=== PATIENT | female | born 1955 | race Caucasian/White ===

== ENCOUNTER → 2018-11-04 | Outpatient (CLI) | payer BC ==
[~2018-11-04] MED LIST: 24 HOUR ALLERG9.9 ML; ASPI81EC PO; CHOL10002 PO; CYCL10 PO; DULO60 PO; HYDACE5 PO; NEBI5 PO; PROM25 PO; Percocet 5-3251 EACH PO; ZYRTEC10 M2 PO
[2018-11-08 15:06] LABS: HPV 16 Negative (Negative); HPV 18 Negative (Negative); HPV OTHER HR TYPES Negative (Negative)
== END | disposition home or self-care (01) ==
LOC: LAB 14:30 → LAB SHORT 14:30
PROVIDERS: Internal Medicine
DX: Z01.419 Encounter for gynecological examination (general) (routine) without abnormal findings (principal)
CPT/HCPCS: 87624; G0145

== ENCOUNTER 2024-05-17 06:52 | Day surgery (SDC) | payer OTHER ==
[~2024-05-17] VITALS: Ht 152.4 cm; Wt 79.1 kg
[2024-05-17] VITALS (15 sets, daily range): BP systolic 70–129; BP diastolic 49–79
[~2024-05-17 06:52] MED LIST changes: +ATOR20 PO; +Calcium Carbon500 MG PO; +Lactated Ringer's 1,000 ML IV SCH; +METO50ER PO
[2024-05-17] MEDS ORDERED: propofoL 40 ML IV ONE (07:09)
[2024-05-17] MEDS ORDERED: NAPR220 (07:22)
--- NOTE | 2024-05-17 07:40 | NUR ---
PT INTO DEPT VIA W/C D/T RIGHT LEG DOESN'T WORK WELL R/T ARTHRITIS Patient confirms NPO status and agrees with scheduled surgery. Pre-Op teaching done. Pt verbalizes understanding. History, Chart, Medications and Allergies reviewed before start of procedure.Patient States Post-Procedure ride home has been arranged.
--- NOTE | 2024-05-17 08:14 | NUR ---
05/17/24 0814 Reinier Maldonado HISTORY, CHART, MEDICATIONS AND ALLERGIES REVIEWED BEFORE START OF PROCEDURE. PATIENT CONFIRMS NPO STATUS AND AGREES WITH SCHEDULED PROCEDURE. 3-LEAD EKG REVIEWED WITH PHYSICIAN PRIOR TO START OF PROCEDURE. MONITOR INTACT WITH CONTINUOUS PULSE OXIMETRY,CAPNOGRAPHY, 3-LEAD EKG, INTERMITTENT BP. SUPPLEMENTAL O2 TO BE TITRATED THROUGHOUT PROCEDURE TO MAINTAIN O2 SATURATION ABOVE 90%. PATIENT DETERMINED TO BE ASA APPROPRIATE FOR PROPOFOL SEDATION PRIOR TO START OF PROCEDURE BY DR. ACEVEDO.
--- NOTE | 2024-05-17 08:48 | NUR ---
DISCHARGE NOTE PT A&OX4, BREATHING RA, NO COMPLAINTS, ABDOMEN SOFT AND NON TENDER, TOLERATING PO FLUIDS, DRESSED INDEPENDENTLY. Discharge instructions reviewed with patient. Patient verbalizes understanding. Copy given to patient to take home. Discharged via wheelchair to private car for ride home.
== END 2024-05-17 08:55 | disposition home or self-care (01) ==
LOC: ORSCMMR 06:52 → ORD 08:00 → ORSCMMR 08:00
PROVIDERS: Internal Medicine Gastroenterology
PROC: 0DJD8ZZ Inspection of Lower Intestinal Tract, Via Natural or Artificial Opening Endoscopic (ICD-10-PCS; principal; 2024-05-17 08:00)
DX: Z12.11 Encounter for screening for malignant neoplasm of colon (principal); K64.8 Other hemorrhoids; R19.5 Other fecal abnormalities; F32.A Depression, unspecified; E78.00 Pure hypercholesterolemia, unspecified; Z79.82 Long term (current) use of aspirin; Z79.899 Other long term (current) drug therapy
CPT/HCPCS: J2704; J7120

== ENCOUNTER 2025-05-23 06:13 | Inpatient (IN) | payer MEDICARE ==
[2025-05-23] VITALS (48 sets, daily range): BP systolic 70–132; BP diastolic 40–87
[~2025-05-23] VITALS: Ht 152.4 cm; Wt 79.6 kg
[~2025-05-23 06:13] MED LIST changes: -ASPI81EC PO; +Aspir 8181 MG PO; -Lactated Ringer's 1,000 ML IV SCH; +NAPR220
[2025-05-23] MEDS ORDERED: Chlorhexidine Mouth Care 15 ML UDC MT SCH (06:45)
[2025-05-23] MEDS ORDERED: Ropivacaine 0.5% HCl/Pf 123.125 MG,EPINEPHrine HCL 0.25 MG,Ketorolac Tromethamine 15 MG... INFIL SCH (06:45)
[2025-05-23] MEDS ORDERED: Tranexamic Acid 100 ML IV SCH (06:48)
[2025-05-23] MEDS ORDERED: NAPR220 PO (06:49)
[2025-05-23] MEDS ORDERED: Prochlorperazine Edisylate 10 mg Vial IV PRN (07:20)
[2025-05-23] MEDS ORDERED: FentaNYL Citrate 50 MCG/ML 2 ML Injection ONE (07:21)
[2025-05-23] MEDS ORDERED: Sugammadex Sodium 200 MG/2ML SDV (100 MG/ML) ONE (07:21)
[2025-05-23] MEDS ORDERED: Phenylephrine HCl 100 MCG/ML-NS 10MLSYR (1MG/10ML) ONE (07:22)
[2025-05-23] MEDS ORDERED: Dexamethasone Sod Phos 10 MG/ML 1ML VIAL ONE (07:22)
[2025-05-23] MEDS ORDERED: Rocuronium Bromide 10 MG/ML 5ML Injection IV ONE (07:22)
[2025-05-23] MEDS ORDERED: Ondansetron HCl 2 MG / ML 2ML Vial ONE ×2 (07:22→11:37)
[2025-05-23] MEDS ORDERED: Magnesium Hydroxide Conc 10 ML UDC PO PRN (07:25)
[2025-05-23] MEDS ORDERED: Metoclopramide HCl 5MG / ML 2ML Vial IV PRN (07:25)
[2025-05-23] MEDS ORDERED: Ondansetron HCl 2 MG / ML 2ML Vial IV PRN ×2 (07:25→07:45)
[2025-05-23] MEDS ORDERED: HYDROmorphone HCl/Pf 1MG SYR IV PRN ×2 (07:30→07:45)
--- NOTE | 2025-05-23 07:30 | NUR ---
History, Chart, Medications and Allergies reviewed before start of procedure.Lungs clear T/O to Auscultation.PRE OP TEACHING DONE
[2025-05-23] MEDS ORDERED: CeFAZolin Sodium 1000 mg Vial ONE ×2 (07:35)
[2025-05-23] MEDS ORDERED: CeFAZolin Sodium 2,000 MG in NS 100 ML IV SCH ×2 (07:35→16:00)
[2025-05-23] MEDS ORDERED: ePHEDrine Sulfate 50 MG/ML 1ML Injection IV PRN (07:40)
[2025-05-23] MEDS ORDERED: Albuterol 2.5 MG/3 ML VIAL INH PRN (07:40)
[2025-05-23] MEDS ORDERED: Labetalol HCL 5 MG/ML 4ML Injection (Single Dose) IV PRN (07:45)
[2025-05-23] MEDS ORDERED: FentaNYL Citrate 50 MCG/ML 2 ML Injection IV PRN (07:45)
[2025-05-23] MEDS ORDERED: ePHEDrine Sulfate 50 MG/ML 1ML Injection ONE (08:01)
[2025-05-23] MEDS ORDERED: DULoxetine HCL 60 MG Capsule DR PO SCH (09:00)
[2025-05-23] MEDS ORDERED: Tranexamic Acid 100 ML IV ONE (11:15)
[2025-05-23] MEDS ORDERED: Albumin (Human) 12.5gm/250ml 500 ML IV SCH (11:15)
[2025-05-23] MEDS ORDERED: Ketorolac Tromethamine 15mg Vial IV SCH (12:00)
--- NOTE | 2025-05-23 12:57 | NUR ---
HOSPITALIST CONSULT WITH DR. MAHONEY. NOTIFIED OF CURRENT PT STATUS AND VS. PARTS ROOM ASSOCIATE NOTIFIED THIS RN ABOUT ANESTHESIA ORDERS FOR BLOOD AND MIDODRINE. DR. MAHONEY AGREES. WILL CONTINUE TO MONITOR PT CLOSELY.
[2025-05-23] MEDS ORDERED: NS 250 ML IV PRN (13:10)
--- NOTE | 2025-05-23 13:18 | NUR ---
POST OP S/P R LOLITA. X3 INCISIONS TO R HIP WITH GAUZE/TEGADERM ARE CDI WITH POLAR PACK IN PLACE. PT DENIES N/T. CAN WIGGLE TOES. PPP. CAP REFILL <3 SECONDS. PT DENIES PAIN. REPORTS MILD NAUSEA--MEDICATED IN PACU BEFORE ARRIVAL. IVF INFUSING PER ORDERS. PT TOLERATING SIPS OF WATER. VITALS IN PROGRESS AND PT HYPOTENSIVE. PT DENIES BEING LIGHTHEADED OR DIZZY. PT DOES APPEAR TO BE PALE. LAB IN ROOM TO DRAW PT FOR A TYPE AND SCREEN. MIDODRINE GIVEN PER ANESTHESIA ORDERS. DR. MAHONEY AT BEDSIDE. V.O. TO TRANSFER TO PCU. PLAN TO RECEIVE BLOOD PRODUCTS. CALL LIGHT WITHIN REACH. BERKLEY NOTIFIED OF PT STATUS AND TREATMENT PLAN.
--- NOTE | 2025-05-23 15:49 | NUR ---
ANESTHESIOLOGIST AT BEDSIDE ROUNDING ON PT.
[2025-05-23 22:07] LABS: BASOPHILS ABSOLUTE AUTO 0.02 K/mm3 (0.00-0.23); BASOPHILS PERCENT AUTO 0 % (0-2); EOSINOPHILS ABSOLUTE AUTO 0.03 K/mm3 (0.00-0.68); EOSINOPHILS PERCENT AUTO 0 % (0-6); Hematocrit 29.8 % (33.0-51.0); Hemoglobin 10.1 g/dL (11.5-16.0); IMMATURE GRAN ABSOLUTE AUTO 0.04 K/mm3 (0.00-0.10); IMMATURE GRAN PERCENT AUTO 0 % (0-1); LYMPHOCYTES ABSOLUTE AUTO 0.90 K/mm3 (0.84-5.20); LYMPHOCYTES PERCENT AUTO 8 % (21-46); MONOCYTES ABSOLUTE AUTO 0.58 K/mm3 (0.16-1.47); MONOCYTES PERCENT AUTO 5 % (4-13); Mean Corpuscular HGB Conc 33.9 g/dL (31.5-36.5); Mean Corpuscular Volume 87 fL (80-100); NEUTROPHILS ABSOLUTE AUTO 9.41 K/mm3 (1.96-9.15); NEUTROPHILS PERCENT AUTO 86 % (41-73); NRBC ABSOLUTE 0.00 K/mm3 (0.00-0.02); NRBC Auto 0.0 /100 WBC (0.0-0.2); Platelet Count 230 K/mm3 (150-400); RDW Coefficient Variation 13.6 % (11.7-14.2); RDW Standard Deviation 43.4 fL (35.1-46.3)
[2025-05-23 22:32] LABS: Alanine Aminotransfer (ALT/SGP 13.0 U/L (12-78); Albumin, Blood 3.0 g/dL (3.4-5.0); Albumin/Globulin Ratio 1.2 (0.8-1.8); Anion Gap 11.0 mmol/L (3-11); Aspartate Aminotrans (AST/SGOT 29.0 U/L (12-37); Bilirubin, Total 0.6 mg/dL (0.1-1.0); Blood Urea Nitrogen 21.0 mg/dL (8-24); CO2, Blood 21.0 mmol/L (21-32); Calcium, Blood 8.1 mg/dL (8.5-10.1); Chloride, Blood 110.0 mmol/L (98-108); Creatinine, Blood 1.14 mg/dL (0.40-1.00); Globulin, Blood 2.6 g/dL (2.2-4.0); Glucose, Blood 154.0 mg/dL (70-99); Potassium, Blood 4.5 mmol/L (3.5-5.5); Sodium, Blood 137.0 mmol/L (136-145); Total Protein, Blood 5.6 g/dL (6.4-8.2)
[2025-05-24] VITALS (20 sets, daily range): BP systolic 84–135; BP diastolic 52–96
--- NOTE | 2025-05-24 06:41 | NUR ---
NOC SUMMARY- PT PAIN MANAGED WELL. PT RECIEVED 2ND UNIT OF PRBC THIS SHIFT. PT IV FLUIDS RUNNING. PT CONTINUES TO HAVE SOFT BP'S. PT HAS BEEN BLADDER SCANNED AND REQUIRED STRIGHT CATH THIS SHIFT. PT HAS PUREWICK DEVICE BUT IS UNABLE TO VOID. THIS AM BLADDER SCAN SHOWED ONLY 118 ML. NO TELE EVENTS REPORTED. PT DRESSINGS ARE C/D/I. CALL LIGHT IN REACH.
[2025-05-24 07:15] LABS: Anion Gap 10.0 mmol/L (3-11); BASOPHILS ABSOLUTE AUTO 0.03 K/mm3 (0.00-0.23); BASOPHILS PERCENT AUTO 0 % (0-2); Blood Urea Nitrogen 17.0 mg/dL (8-24); CO2, Blood 22.0 mmol/L (21-32); Calcium, Blood 8.0 mg/dL (8.5-10.1); Chloride, Blood 110.0 mmol/L (98-108); Creatinine, Blood 1.01 mg/dL (0.40-1.00); EOSINOPHILS ABSOLUTE AUTO 0.01 K/mm3 (0.00-0.68); EOSINOPHILS PERCENT AUTO 0 % (0-6); Glucose, Blood 113.0 mg/dL (70-99); Hematocrit 28.2 % (33.0-51.0); Hemoglobin 9.6 g/dL (11.5-16.0); IMMATURE GRAN ABSOLUTE AUTO 0.04 K/mm3 (0.00-0.10); IMMATURE GRAN PERCENT AUTO 1 % (0-1); LYMPHOCYTES ABSOLUTE AUTO 1.21 K/mm3 (0.84-5.20); LYMPHOCYTES PERCENT AUTO 14 % (21-46); MONOCYTES ABSOLUTE AUTO 0.80 K/mm3 (0.16-1.47); MONOCYTES PERCENT AUTO 9 % (4-13); Magnesium, Blood 1.7 mg/dL (1.6-2.4); Mean Corpuscular HGB Conc 34.0 g/dL (31.5-36.5); Mean Corpuscular Volume 87 fL (80-100); NEUTROPHILS ABSOLUTE AUTO 6.52 K/mm3 (1.96-9.15); NEUTROPHILS PERCENT AUTO 76 % (41-73); NRBC ABSOLUTE 0.00 K/mm3 (0.00-0.02); NRBC Auto 0.0 /100 WBC (0.0-0.2); Platelet Count 193 K/mm3 (150-400); Potassium, Blood 4.1 mmol/L (3.5-5.5); RDW Coefficient Variation 14.1 % (11.7-14.2); RDW Standard Deviation 44.1 fL (35.1-46.3); Sodium, Blood 138.0 mmol/L (136-145)
[2025-05-24] MEDS ORDERED: Trimethoprim/Sulfamethoxazole DS Tab PO SCH (09:00)
--- NOTE | 2025-05-24 10:01 | NUR ---
Primary RN asked this WET PROCESS MILLER HEAD ASSISTANT to assist pt back to bed from chair. Pt reclined in chair: b/p 96/67, pulse 95 (time 0937) Pt standing with FWW/GB CGA: b/p 90/67, pulse 110 (time 0939) Pt lost balance transfering back to bed. This WET PROCESS MILLER HEAD ASSISTANT assisted pt safely to bed with GB and verbal cues. Pt stated "I'm feeling lightheaded." Pt dangling at EOB: b/p 84/66, pulse 110 (time 0940) Pt states that she is "still feeling lightheaded". This WET PROCESS MILLER HEAD ASSISTANT assisted pt into the bed. While lying in bed: b/p 110/60, pulse 110 (time 0942). SCD's placed on pt, bed at lowest position with call light in reach. Primary RN notified of pt vitals and statements of lightheadedness.
[2025-05-24] MEDS ORDERED: Enoxaparin 40 MG/0.4 ML SYR SC SCH (12:00)
--- NOTE | 2025-05-24 14:41 | NUR ---
PT UNABLE TO VOID DESPITE TWO TRIPS TO THE [facility]. BLADDER SCANNED FOR [id number]. PLAN FOR STRAIGHT CATHETERIZATION.
--- NOTE | 2025-05-24 18:22 | NUR ---
SHIFT SUMMARY pt resting. iv to sl. orthostatic with OT this am. symptoms now resoved. midodrine/iv on hold per hospitalist. Will reattempt in am. Pt unable to void this shift and was straight cathed for the second time. hospitalist aware.
[2025-05-25 04:39] VITALS: BP 116/55
[2025-05-25 05:07] LABS: Hematocrit 28.2 % (33.0-51.0); Hemoglobin 9.6 g/dL (11.5-16.0)
--- NOTE | 2025-05-25 05:30 | NUR ---
SHIFT SUMMARY LYNETTE WAS ALERT AND FULLY ORIENTED ON ASSESSMENT. PAIN WELL MANAGED. DRESSINGS TO R HIP C/D/I, CIRCULATION AND SENSATION TO FEET INTACT. PT WAS FINALLY ABLE TO SAFELY AMBULATE TO BS & PRODUCE SPONTANEOUS VOID THIS SHIFT, NO ORTHOSTATIC DIZZINESS NOTED. PT DENIES SOB, NAUSEA OR CHEST PAIN. NO ACUTE EVENTS THIS SHIFT.
[2025-05-25 05:36] LABS: Anion Gap 7.0 mmol/L (3-11); Blood Urea Nitrogen 16.0 mg/dL (8-24); CO2, Blood 25.0 mmol/L (21-32); Calcium, Blood 8.1 mg/dL (8.5-10.1); Chloride, Blood 109.0 mmol/L (98-108); Creatinine, Blood 1.02 mg/dL (0.40-1.00); Glucose, Blood 93.0 mg/dL (70-99); Potassium, Blood 3.7 mmol/L (3.5-5.5); Sodium, Blood 137.0 mmol/L (136-145)
[2025-05-25 07:59] VITALS: BP 109/72
[2025-05-25 13:26] VITALS: BP 88/55
[2025-05-25 14:07] VITALS: BP 106/61
[2025-05-25 17:15] VITALS: BP 99/58
[2025-05-25 17:50] LABS: Ferritin, Serum 74.0 ng/mL (8-252); Total Iron Binding Capacity 216.0 ug/dL (250-450)
--- NOTE | 2025-05-25 18:09 | NUR ---
SHIFT SUMMARY CT CHEST TO R/O PE NEGATIVE TODAY. ECHOCARDIOGRAM PENDING. ORTHOSTATIC/TACHYCARDIC WITH ACTIVITY TODAY THE PREVIOUS DAY. WILL CONTINUE TO MONITOR. PT DENIES COMPLAINTS.
[2025-05-25 19:54] VITALS: BP 107/67
[2025-05-26] VITALS (8 sets, daily range): BP systolic 106–139; BP diastolic 69–82
--- NOTE | 2025-05-26 04:22 | NUR ---
SHIFT SUMMARY LYNETTE WAS ALERT AND FULLY ORIENTED ON ASSESSMENT. PT PAIN UNDER CONTROL W/O NEED OF PAIN MANAGEMENT. DRESSINGS TO R HIP C/D/I, CIRCULATION AND SENSATION INTACT TO BLE'S. PT STILL VOIDING APPROPRIATLY. PT DENIES SOB, NAUSEA, OR CHEST PAIN. PT STILL BECOMING DIZZY WITH POSITION CHANGES. NO ACUTE EVENTS OR NOTED CHANGES TO PT CONDITION.
[2025-05-26 05:13] LABS: Hematocrit 26.8 % (33.0-51.0); Hemoglobin 9.0 g/dL (11.5-16.0)
[2025-05-26 05:49] LABS: Anion Gap 6.0 mmol/L (3-11); Blood Urea Nitrogen 14.0 mg/dL (8-24); CO2, Blood 26.0 mmol/L (21-32); Calcium, Blood 8.0 mg/dL (8.5-10.1); Chloride, Blood 108.0 mmol/L (98-108); Creatinine, Blood 0.95 mg/dL (0.40-1.00); Glucose, Blood 92.0 mg/dL (70-99); Potassium, Blood 4.1 mmol/L (3.5-5.5); Sodium, Blood 136.0 mmol/L (136-145)
[2025-05-26] MEDS ORDERED: Sod Ferric Gluc Complx/Sucrose 125 MG in NS 100 ML IV SCH (09:00)
--- NOTE | 2025-05-26 09:13 | NUR ---
Pt laying in bed awake a/ox4, pleasant and cooperative with care, follows commands well, denies pain at this time, lungs are clear t/o, resp even and unlabored, no cough noted, on r/a, hrr, tele in place running sr per monitor, see strip, no edema noted, ppp+2, cap refill <3 sec, vs stable, afebrile, piv to lac site is clear and patent, btx4, abd flat soft nontender, voids via bsc, skin has dressing to r hip with some bruising, otherwise c/w/d, wali kramer, call light in reach, sat pt up to get to bsc this am her b/p maintained, heart rate briefly went up to 120 then back to 97-110, pt states some dizziness initially but passed quickly. call light in reach.
--- NOTE | 2025-05-26 18:22 | NUR ---
pt had an uneventful day, states pain stays about a two at all times, got up to chair for a while, and got up to bsc, states the dizzy feeling is better than yesterday. no further changes this shift, call light in reach.
--- NOTE | 2025-05-27 05:23 | NUR ---
NOC SUMMARY- PT PAIN MANAGED WELL. PT TOLERATING PO AND VOIDING. PT DRESSING IS C/D/I. PT HAS RESTED COMFORTABLY. NO NEW ISSEUS NOTED. CALL LIGHT IN REACH.
[2025-05-27 05:39] VITALS: BP 131/83
[2025-05-27 07:06] VITALS: BP 127/71
[2025-05-27] MEDS ORDERED: ACET500 PO (11:10)
[2025-05-27] MEDS ORDERED: SULTRIDS PO (11:11)
[2025-05-27] MEDS ORDERED: OXYC5 PO (11:11)
[2025-05-27] MEDS ORDERED: ONDA4ODT MM (11:11)
[2025-05-27 11:30] VITALS: BP 129/72
--- NOTE | 2025-05-27 12:10 | NUR ---
DRESSING CHANGE DR. KAYE ABLE TO SEE PATIENT AND ASSESS TEGADERM DRESSING. PATIENT HAS PINK BLISTERS UNDER TEGADERM DRESSING. DRESSING WAS CHANGED TO XEROFORM, GAUZE AND PAPER TAPE. NOTED REDDNESS TO OUTER AREA OF L HIP INCISION.
[2025-05-27 14:48] VITALS: BP 142/82
[2025-05-27] MEDS ORDERED: FERSU300 PO (15:12)
[2025-05-27] MEDS ORDERED: FOLI1 PO (15:12)
[2025-05-27] MEDS ORDERED: METO25 PO (15:13)
--- NOTE | 2025-05-27 18:24 | NUR ---
DISCHARGE PATIENT IS POD 3 L LOLITA, ALL INSTRUCTIONS READ AND SIGNED. PATIENT HIP DRESSING CHANGED AND NEW DRESSING SUPPLIES GIVEN WITH INSTURCTIONS. ALL MEDS FAXED TO [facility]. IV TAKEN OUT INTACT. PATIENT LEAVES VIA PRIVATE CAR. VSS.
== END 2025-05-27 18:15 | disposition home health service (06) | DRG 981 ==
LOC: ORSCMMR 06:13 → SURS 12:44 → ORSCMMR 14:00 → ORD 14:00 → SURS 14:01 → ORSCMMR 14:01 → SURS 14:01
PROVIDERS: Family Medicine; Student in an Organized Health Care Education/Training Program; ADMIT Orthopaedic Surgery
PROC: 0QU407Z Supplement Right Acetabulum with Autologous Tissue Substitute, Open Approach (ICD-10-PCS; 2025-05-23)
PROC: 30233N1 Transfusion of Nonautologous Red Blood Cells into Peripheral Vein, Percutaneous Approach (ICD-10-PCS; 2025-05-23)
PROC: 0SR904A Replacement of Right Hip Joint with Ceramic on Polyethylene Synthetic Substitute, Uncemented, Open Approach (ICD-10-PCS; principal; 2025-05-23 07:30)
DX: I95.81 Postprocedural hypotension (principal); J96.91 Respiratory failure, unspecified with hypoxia; I47.10 Supraventricular tachycardia, unspecified; M16.11 Unilateral primary osteoarthritis, right hip; F32.A Depression, unspecified; M85.80 Other specified disorders of bone density and structure, unspecified site; E78.5 Hyperlipidemia, unspecified; D52.9 Folate deficiency anemia, unspecified; D64.89 Other specified anemias; M25.751 Osteophyte, right hip; I95.1 Orthostatic hypotension; M24.7 Protrusio acetabuli; D50.9 Iron deficiency anemia, unspecified; Z79.82 Long term (current) use of aspirin; Z88.0 Allergy status to penicillin; Z88.5 Allergy status to narcotic agent; Z88.8 Allergy status to other drugs, medicaments and biological substances; Z79.1 Long term (current) use of non-steroidal anti-inflammatories (NSAID)
CPT/HCPCS: 36415; 36430; 51701; 71260; 72170; 80048; 80053; 82607; 82728; 82746; 83540; 83550; 83735; 85014; 85018; 85025; 86850; 86900; 86901; 86923; 93306; 96372; 96374; 96375; 97110; 97116; 97162; 97165; 97530; 97535; A9270; C1713; C1776; G0378; J0166; J0690; J0735; J1100; J1650; J1885; J2371; J2405; J2704; J2795; J2916; J3010; J3373; J7050; J7120; P9016; P9045; Q9967